=== PATIENT | female | born 1940 | race Caucasian/White ===

== ENCOUNTER → 2016-04-08 | Outpatient (CLI) | payer MEDICARE, OTHER ==
--- NOTE | 2016-04-08 13:35 | MAM ---
EXAM DESCRIPTION: MAMMO BREAST SCREENING BILATERAL CAD, images were reviewed with CAD technology, R2 computer-aided detection. CLINICAL HISTORY: [facility]. COMPARISON: 2011. FINDINGS: Routine views are obtained. Scattered glandular pattern. Stable partially calcified nodule left breast. No dominant mass, architectural distortion or clustered microcalcification.. IMPRESSION: Benign exam. BIRAD CATEGORY: 2 BENIGN RECOMMENDATIONS: FOLLOW-UP: Routine screening mammogram in one year. According to the [employer], yearly mammograms are recommended starting at age 40 and continuing as long as a woman is in good health. Any breast change noted on a breast self-exam should be reported promptly to the patient's healthcare provider. Breast MRI is recommended for women with an approximately 20-25% or greater lifetime risk of breast cancer, including women with a strong family history of breast or ovarian cancer and women who have been treated for Hodgkin's disease. Electronically signed by: Tessie Hernanedz 04/08/2016 13:33
== END ==
LOC: MAMMO 10:41
PROVIDERS: ATTEND Family Medicine
DX: Z12.31 Encounter for screening mammogram for malignant neoplasm of breast (principal)
CPT/HCPCS: 77052; G0202

== ENCOUNTER → 2016-05-12 | Outpatient (CLI) | payer MEDICARE, OTHER | END | disposition home or self-care (01) | LOC: GMAB 10:19 | PROVIDERS: ATTEND Family Medicine | DX: I10 Essential (primary) hypertension (principal); Z79.4 Long term (current) use of insulin ==

== ENCOUNTER 2016-05-31 20:49 | Emergency (ER) | payer MEDICARE, OTHER ==
[2016-05-31 22:45] VITALS: TEMP 98.3; O2SAT 95
--- NOTE | 2016-05-31 23:05 | ED.PDOC ---
History of Present Illness - General Chief Complaint: Diabetic Complaint Stated Complaint: high blood sugar Time Seen by Provider: 05/31/16 22:59 Source: patient - History of Present Illness Initial Comments: Christiano Roberts 75 y/o type 2 dm on insulin long acting which was prescibed recently aspartame insulin 30 units am 40 units pm and 1 gm metformin bid stated her blood sugar still high at 250 mg/dl but recheck here at [facility] er W/ FSBS-68 mg/dl she was noted to be shaky and was given food tray.She stated she was previously on humalog 70/30 bid but her insurance does not pay for it anymore. Timing/Duration: 1-3 hours Severity: moderate Improving Factors: nothing Worsening Factors: nothing Associated Symptoms: denies symptoms Allergies/Adverse Reactions: Allergies NO KNOWN ALLERGY Allergy (Verified 05/31/16 22:50) Review of Systems - Review of Systems Constitutional: States: no symptoms reported EENTM: States: no symptoms reported Respiratory: States: no symptoms reported Cardiology: States: no symptoms reported Gastrointestinal/Abdominal: States: no symptoms reported Genitourinary: States: no symptoms reported Musculoskeletal: States: no symptoms reported Skin: States: no symptoms reported Neurological: States: no symptoms reported Endocrine: States: see HPI Hematologic/Lymphatic: States: no symptoms reported Past Medical History (General) - Patient Medical History Hx Hypertension: Yes Hx Diabetes: Yes Surgical History: no surgical history - Social History Hx Tobacco Use: No Hx Chewing Tobacco Use: No - Activities of Daily Living Patient Lives Alone: No - Grooming Ability: Independent Eating (Feeding) Ability: Independent Toileting Ability: Independent Family Medical History - Family History Father Family History: Unknown Living Status: Hx Family Hypertension: Yes - parents Hx Family Diabetes: Yes - dad Hx Family Cancer: Yes - ovarian-sister Physical Exam - Physical Exam General Appearance: Alert, Anxious, No apparent distress Eye Exam: bilateral normal Ears, Nose, Throat: hearing grossly normal, normal ENT inspection, normal pharynx Neck: non-tender, full range of motion, supple Respiratory: chest non-tender, lungs clear, normal breath sounds Cardiovascular/Chest: normal peripheral pulses, regular rate, rhythm, no edema, no gallop, no JVD Peripheral Pulses: radial,right: 2+, radial,left: 2+ Gastrointestinal/Abdominal: normal bowel sounds, non tender, soft, no organomegaly Back Exam: normal inspection, no CVA tenderness, no vertebral tenderness Extremity: normal range of motion, non-tender, normal inspection Neurologic: no motor/sensory deficits, alert, normal mood/affect, oriented x 3 Skin Exam: normal color, warm/dry Lymphatic: no adenopathy Progress - Results/Orders Results/Orders: Laboratory Results POC Glucose 140 mg/dL (70-105) H D 05/31/16 23:40 Departure - Departure Clinical Impression: Diabetes mellitus Qualifiers: Diabetes mellitus type: type 2 Diabetes mellitus complication status: with hypoglycemia Diabetes mellitus complication detail: without coma Qualifier Code : (E11.649) Type 2 diabetes mellitus with hypoglycemia without coma Time of Disposition: 00:08 Disposition: Discharge to Home or Self Care Condition: Good Departure Forms: ED Discharge - Pt. Copy, Patient Portal Self Enrollment Instructions: DI for Hypoglycemia Referrals: Lopez Palmer MD [Primary Care Provider] - 1-2 Weeks Additional Instructions: Call your md in am regarding you er visit for hypoglycemic episode on your new insulin regimen. Comments: Call your MD in AM about your visit to er for hypglycemic episodes
[2016-06-01 00:22] VITALS: BP 174/72
== END 2016-06-01 00:22 | disposition home or self-care (01) ==
LOC: ER 20:49
DX: E11.649 Type 2 diabetes mellitus with hypoglycemia without coma (principal); I10 Essential (primary) hypertension; Z79.4 Long term (current) use of insulin; Z83.3 Family history of diabetes mellitus; Z80.41 Family history of malignant neoplasm of ovary

== ENCOUNTER → 2017-05-06 | Outpatient (CLI) | payer MEDICARE, OTHER ==
--- NOTE | 2017-05-11 11:28 | MAM ---
EXAM DESCRIPTION: 3D Screening BILATERAL : Digital Mammography. CLINICAL HISTORY: 76 years Female SCREENING .. No complaints. No family history of breast cancer. Postmenopausal. No HRT. COMPARISON: 2-D digital screening bilateral studies 04/08/2016, 04/06/2015, and 02/03/2011. Report from prior examination also reviewed. TECHNIQUE: Bilateral CC and MLO projection full-field images, 3-D tomosynthesis digital mammographic technique. Also bilateral synthesized CC/ MLO full-field images. CAD not utilized. FINDINGS: The breast parenchymal density pattern is: Scattered areas of fibroglandular density. No skin thickening or nipple retraction bilateral solitary microcalcifications. Bilateral vascular calcifications. Large coarse calcification and smaller coarse calcifications and heterogeneous microcalcifications associated with mass density in the 1230 - 100 clock sector, middle third of the upper outer quadrant of the left breast. Approximately 7 cm from the nipple. Stable since a prior study in 2010. No new focal, stellate mass or density, focal asymmetry , and no suspicious microcalcifications bilaterally. Stable mammograms compared to prior studies, taking into account differences in mammographic technique IMPRESSION: BI-RADS CATEGORY: 2 - BENIGN FINDINGS. FOLLOW UP: Routine digital bilateral screening, one year interval from April 2017. Written communication explaining the IMPRESSION and follow-up, will be mailed to the patient and referring health care provider. According to the [employer], yearly mammograms are recommended starting at age 40 and continuing as long as a woman is in good health. Any breast change noted on a breast self-exam should be reported promptly to the patient's healthcare provider. Breast MRI is recommended for women with an approximately 20-25% or greater lifetime risk of breast cancer, including women with a strong family history of breast or ovarian cancer and women who have been treated for Hodgkin's disease. A negative mammographic report should not delay tissue diagnosis in patients with significant clinical history or physical findings. Extremely dense breast tissue limits the sensitivity of digital mammography. Electronically signed by: Baldemar Rose MD 05/11/2017 11:27 AM CROSSCUTTER
== END ==
LOC: MAMMO 08:30
PROVIDERS: ATTEND Family Medicine
DX: Z12.31 Encounter for screening mammogram for malignant neoplasm of breast (principal)

== ENCOUNTER → 2017-05-17 | Outpatient (CLI) | payer MEDICARE, OTHER | LOC: GMAB 10:37 | PROVIDERS: ATTEND Family Medicine | DX: I10 Essential (primary) hypertension (principal); E11.21 Type 2 diabetes mellitus with diabetic nephropathy; Z79.4 Long term (current) use of insulin; E78.2 Mixed hyperlipidemia ==

== ENCOUNTER 2017-06-15 11:43 | Emergency (ER) | payer MEDICARE, OTHER ==
[2017-06-15 12:06] VITALS: TEMP 98.4; O2SAT 92
--- NOTE | 2017-06-15 12:10 | ED.PDOC ---
History of Present Illness - General Chief Complaint: General Stated Complaint: left arm swelling Time Seen by Provider: 06/15/17 11:48 Source: patient Exam Limitations: no limitations - History of Present Illness Initial Comments: the patient is a 77-year-old female presenting to the emergency room secondary to swelling of her left upper extremity. The patient apparently had an IV infiltrate while she was having CT angiograms of her lower extremities done this morning. the upper extremities is moderately swollen. She is neurovascularly intact distally. She moves the shoulder elbow wrist and hand well. Capillary refill is good. Again there is no obvious neurovascular compromise. The fluid is already starting to redistribute. No evidence of infection at this time. No clinical evidence of any tissue necrosis at this time. Timing/Duration: 4-6 hours Severity: moderate Improving Factors: nothing Worsening Factors: nothing Associated Symptoms: denies symptoms Allergies/Adverse Reactions: Allergies NO KNOWN ALLERGY Allergy (Verified 06/15/17 12:03) Review of Systems - Review of Systems Constitutional: States: no symptoms reported EENTM: States: no symptoms reported Respiratory: States: no symptoms reported Cardiology: States: no symptoms reported Gastrointestinal/Abdominal: States: no symptoms reported Genitourinary: States: no symptoms reported Musculoskeletal: States: see HPI Skin: States: see HPI Neurological: States: no symptoms reported Endocrine: States: no symptoms reported All other Systems: No Change from Baseline Past Medical History (General) - Patient Medical History Hx Hypertension: Yes Hx Diabetes: Yes Surgical History: no surgical history - Vaccination History Hx Influenza Vaccination: No Hx Pneumococcal Vaccination: Yes - Social History Hx Tobacco Use: No Hx Chewing Tobacco Use: No Hx Alcohol Use: No Family Medical History - Family History Father Family History: Unknown Living Status: Hx Family Hypertension: Yes - parents Hx Family Diabetes: Yes - dad Hx Family Cancer: Yes - ovarian-sister Physical Exam - Physical Exam General Appearance: Alert, Comfortable, No apparent distress Eye Exam: bilateral normal Ears, Nose, Throat: normal ENT inspection, normal pharynx Neck: full range of motion, supple Respiratory: no respiratory distress, no accessory muscle use Cardiovascular/Chest: normal peripheral pulses, other - regular rate Peripheral Pulses: radial,right: 2+, radial,left: 2+, dorsalis pedis,right: 2+, dorsalis pedis,left: 2+ Gastrointestinal/Abdominal: non tender, soft Rectal Exam: deferred Back Exam: normal inspection, no CVA tenderness Extremity: normal range of motion, no pedal edema, no calf tenderness, normal capillary refill, swelling - see history of present illness Neurologic: hop strainer II-XII nml as tested, alert, normal mood/affect, oriented x 3 Skin Exam: normal color Comments: Vital Signs - 24 hr 06/15/17 11:55 Temperature 98.4 F Pulse Rate [ 77 pulse ox] Respiratory 20 Rate Blood Pressure 190/70 [Right Arm] O2 Sat by Pulse 92 L Oximetry Progress - Progress Progress: 06/15/17 12:10 the patient is a 77-year-old female presenting to the emergency room secondary left upper extremity swelling after it appears that an IV infiltrated during a CT angiogram this morning. She appears to be neurovascularly intact and moves the extremity quite well. The fluid already appears to be redistributing. No evidence of any significant localized reaction. She does need to try and move the arm a good bit today to help move the fluid out. She can also keep it elevated at night to help reduce the swelling. She should expect the swelling to redistribute both proximally and distally over the next 24-48 hours. ER warnings were given for any further concerns or change for the worse. She needs to follow up with her primary care doctor for follow-up of the CT scans. Her blood pressure is moderately elevated currently which is consistent with mild anxiety and the recent radiographical studies. She does need to follow this at home and make sure it goes back down when she relaxes over the next day or 2. Departure - Departure Clinical Impression: IV infiltrate Qualifiers: Encounter type: initial encounter Qualified Code(s): T80.1XXA - Vascular complications following infusion, transfusion and therapeutic injection, initial encounter Disposition: Discharge to Home or Self Care Condition: Fair Departure Forms: ED Discharge - Pt. Copy, Patient Portal Self Enrollment Diet: regular diet Activity: increase activity as tolerated Referrals: Lopez Palmer MD [Primary Care Provider] - 1-2 Days Additional Instructions: the patient is a 77-year-old female presenting to the emergency room secondary left upper extremity swelling after it appears that an IV infiltrated during a CT angiogram this morning. She appears to be neurovascularly intact and moves the extremity quite well. The fluid already appears to be redistributing. No evidence of any significant localized reaction. She does need to try and move the arm a good bit today to help move the fluid out. She can also keep it elevated at night to help reduce the swelling. She should expect the swelling to redistribute both proximally and distally over the next 24-48 hours. ER warnings were given for any further concerns or change for the worse. She needs to follow up with her primary care doctor for follow-up of the CT scans. Her blood pressure is moderately elevated currently which is consistent with mild anxiety and the recent radiographical studies. She does need to follow this at home and make sure it goes back down when she relaxes over the next day or 2.
[2017-06-15 12:32] VITALS: BP 190/65
== END 2017-06-15 12:31 | disposition home or self-care (01) ==
LOC: ER 11:43
DX: T80.1XXA Vascular complications following infusion, transfusion and therapeutic injection, initial encounter (principal); I10 Essential (primary) hypertension; E11.9 Type 2 diabetes mellitus without complications

== ENCOUNTER → 2017-06-17 | Outpatient (CLI) | payer MEDICARE, OTHER ==
--- NOTE | 2017-06-18 12:56 | CT ---
EXAM DESCRIPTION: CTA Runoff CLINICAL HISTORY: CLAUDICATION DM TYPE 2 COMPARISON: Duplex ultrasound evaluation of the carotid and vertebral arteries 09/15/2017. TECHNIQUE: CT angiography of the abdominal aorta and both lower extremities is performed during rapid bolus administration of IV contrast media. Three-dimensional volume-rendering imaging is reviewed along with 2.5 mm helical axial source images, and 2.0 mm coronal and sagittal reformats. Total Exam DLP: 1352.93 mGy-cm. This exam was performed according to our departmental CT dose-optimization program which includes automated exposure control, adjustment of the mA and/or kV according to patient size and/or use of iterative reconstruction technique; to reduce radiation dose to as low as reasonably achievable (ALARA). FINDINGS: Upper abdominal aorta: Moderate atherosclerotic calcification and intimal wall thickening. Approximately 50% diameter stenosis of the origin of the SMA with no significant calcification distally. Approximately 25% diameter stenosis of the ostium of the celiac axis and minimal distal calcification mainly in the splenic artery. Mid-abdominal aorta: Approximately 50% diameter stenosis with significant amount of calcification. Significant calcification of the bilateral single renal artery ostia and at least 50% diameter stenosis, but no poststenotic dilation bilaterally. Distal abdominal aorta: Circumferential atherosclerotic calcification from the renal arteries to the bifurcation. Approximately 50% diameter stenosis just above the bifurcation at the L3 level. 55% diameter stenosis at the L2 level, and the origin of the BITA. Common iliacs: Approximately 50-60% diameter stenosis of the proximal right vessel by atherosclerotic calcification. Approximately 25% diameter stenosis of the origin of the left side vessel. Internal iliacs: Calcification narrowing the origins of the bilateral internal iliac arteries with no significant loss of contrast in the vessels. Minimal Bilateral external iliac artery: Minimal calcification bilaterally with no significant narrowing. Right FOAM CHARGER: Minimal calcification with approximately 20% diameter stenosis. Bifurcation unremarkable. Right SFA: Moderate atherosclerotic calcification throughout the entirely with approximately 50% diameter stenosis distally. No collateral circulation. Right popliteal: Minimal calcification and moderate narrowing. Right trifurcation vessels: All visible. Large calcification of the origin of the NOLBERTO. Fair to good runoff anterior and posterior ankle. Left FOAM CHARGER: Minimal calcification with less than 20% diameter stenosis. Bifurcation unremarkable. Left SFA: Approximately 40% diameter stenosis for a short segment proximally and similar degree of stenosis at the level of the medial femur and again distally. Left popliteal: Stent is visible and is partially patent. Left trifurcation vessels: All visible. Fair runoff into the anterior and posterior ankle. Other: Liver and spleen partially visualized. Gallbladder with thickened gutiérrez but no mesenteric stranding. At least one radiodense stone in the fundus next to a fold. Proximal and distal common bile duct dilated almost 1 cm. Pancreatic duct is faintly visible. Uniform enhancement of the pancreas. Spondylosis at multiple levels of the lumbar spine and bilateral hip degeneration. Minimal bilateral patellar tilt. IMPRESSION: 1. Some vessels with diameter stenosis 50-60%, notably distal abdominal aorta.. Also origin of the SMA and proximal right common iliac. No aneurysms. 2. Left popliteal stent is partially patent with no significant collaterals seen. 3. At least fair runoff into the bilateral anterior and posterior ankles. Slightly better on the right. 4. Thickened gallbladder wall with at least one stone. Dilated common bile duct. No significant intrahepatic duct dilation. Pancreatic duct is visible. Consider ultrasound evaluation of the right upper quadrant of the abdomen.. Electronically signed by: Baldemar Rose MD 06/18/2017 12:54 PM CDT
== END ==
LOC: CT 08:30
PROVIDERS: ATTEND Family Medicine
DX: I65.23 Occlusion and stenosis of bilateral carotid arteries (principal); E11.51 Type 2 diabetes mellitus with diabetic peripheral angiopathy without gangrene

== ENCOUNTER → 2017-07-05 | Outpatient (CLI) | payer MEDICARE, OTHER ==
--- NOTE | 2017-07-05 12:18 | US ---
EXAM DESCRIPTION: Abdomen,Complete CLINICAL HISTORY: GALLSTONES COMPARISON: CT angiography June 17, 2017 TECHNIQUE: Complete abdominal ultrasound FINDINGS: Visualized portions of the pancreas are unremarkable. No peripancreatic fluid. Bowel gas obscures some areas. Normal caliber of the aorta. Normal appearance of the inferior vena cava. Liver parenchyma is homogeneous in texture with mildly increased echogenicity. No liver mass or intrahepatic bile duct dilatation. No liver surface irregularity. Normal appearance of hepatic veins and portal vein. Gallbladder appears normal in size. Positive shadowing stone in the gallbladder neck measures 1 cm. No gallbladder wall thickening or over distention to suggest obstruction or acute inflammation. Patient had CT angiography of the abdomen which showed a gallstone and evidence of gallbladder wall thickening. Gallbladder wall thickness on the present exam is within normal limits measuring 2 mm. Common bile duct is enlarged measuring 1.25 cm. Correlate with other studies if alkaline phosphatase is elevated. The distal duct is obscured by overlying bowel gas. Previous CT June 17, 2017 showed ectatic common hepatic and common bile duct measuring 1.2 to 1.3 cm. No calcified stone was seen in the duct on the CT exam. The peripheral intrahepatic bile ducts did not appear enlarged and there was no lesion of the pancreatic head or uncinate process other than large duodenal diverticula. The right kidney measures 11.1 cm in length. Normal renal cortical echogenicity. The renal cortical thickness appears normal. No right renal mass, shadowing stone or cyst. There is no hydronephrosis. Spleen is normal in size. No focal splenic lesion. The left kidney measures 9.4 cm in length. Normal to slightly increased renal cortical echogenicity. The renal cortical thickness appears mildly decreased. No left renal mass, shadowing stone or cyst. There is no hydronephrosis. IMPRESSION: Gallstone without other changes to suggest acute cholecystitis. Ectatic common bile duct. See above. Electronically signed by: Elias Beach MD 07/05/2017 12:16 PM CDT
== END ==
LOC: US 09:00
PROVIDERS: ATTEND Family Medicine
DX: K80.20 Calculus of gallbladder without cholecystitis without obstruction (principal)

== ENCOUNTER → 2018-06-06 | Outpatient (CLI) | payer MEDICARE, OTHER ==
--- NOTE | 2018-06-13 10:47 | MAM ---
EXAM DESCRIPTION: 3D Screening BILATERAL : Digital Mammography. CLINICAL HISTORY: 78 years Female SCREENING . No complaints or personal history of breast cancer. Sister with breast and ovarian cancer. Childbirth. Postmenopausal. No HRT. Lifetime risk of developing breast cancer (Tyrer-Cuzick model)(%): 2.8. COMPARISON: Bilateral screening digital breast tomosynthesis 05/06/2017. TECHNIQUE: Bilateral CC and MLO projection full-field images, digital tomosynthesis mammographic technique. Bilateral digital 2-D full-field MLO images. CAD not available for tomosynthesis or 2-D images. FINDINGS: The breast parenchymal density pattern is: Scattered areas of fibroglandular density. No skin thickening or nipple retraction. Bilateral solitary microcalcifications. Bilateral vascular calcifications. Focal asymmetry and architectural distortion associated with a mass density at the 1:00 position of the middle third of the left breast with large coarse calcification and several microcalcifications. Partially circumscribed margins and approximately 2 cm greatest diameter, similar to the prior study. Most likely fat necrosis. No new focal, stellate mass or density, focal asymmetry , and no suspicious microcalcifications bilaterally. Stable mammograms compared to prior study. IMPRESSION: Benign exam. BIRAD CATEGORY: 2 BENIGN FINDINGS. RECOMMENDATIONS: FOLLOW UP: Routine digital bilateral mammographic screening, one year interval from May 2018. Written communication explaining the IMPRESSION and follow-up, will be mailed to the patient and referring health care provider. According to the [employer], yearly mammograms are recommended starting at age 40 and continuing as long as a woman is in good health. Any breast change noted on a breast self-exam should be reported promptly to the patient's healthcare provider. Breast MRI is recommended for women with an approximately 20-25% or greater lifetime risk of breast cancer, including women with a strong family history of breast or ovarian cancer and women who have been treated for Hodgkin's disease. A negative mammographic report should not delay tissue diagnosis in patients with significant clinical history or physical findings. Extremely dense breast tissue limits the sensitivity of digital mammography. Electronically signed by: Baldemar Rose MD 06/13/2018 10:44 AM CDT
== END ==
LOC: MAMMO 15:00
PROVIDERS: ATTEND Family Medicine
DX: Z12.31 Encounter for screening mammogram for malignant neoplasm of breast (principal)

== ENCOUNTER → 2018-06-08 | Outpatient (CLI) | payer MEDICARE, OTHER | LOC: GMAE 11:00 | PROVIDERS: ATTEND Family Medicine | DX: I10 Essential (primary) hypertension (principal) ==

== ENCOUNTER → 2019-01-25 | Outpatient (CLI) | payer MEDICARE, OTHER | LOC: GMAJS 11:29 | PROVIDERS: ATTEND Physician Assistant | DX: I10 Essential (primary) hypertension (principal); R06.02 Shortness of breath ==